=== PATIENT | male | born 1990 | race Two or more races ===

== ENCOUNTER 2018-09-12 14:39 | Emergency (ER) | payer SELFPAY ==
[~2018-09-12] VITALS: Ht 182.9 cm; Wt 126.6 kg
[2018-09-12 14:41] VITALS: BP 153/94
--- NOTE | 2018-09-12 15:31 | NUR ---
FIRST CONTACT WITH PT. PT C/O LOW BACK PAIN PT STATES "IT SHOCKS ME AND I CAN'T WALK." PT CRYING IN TRIAGE. PT DENIES ANY OTHER SYMPTOMS. PT'S AOX4. RESPS EVEN AND UNLABORED.
[2018-09-12] MEDS ORDERED: OXYcodone/APAP 5/325MG TABLET ONE (15:52)
[2018-09-12] MEDS ORDERED: ONDANSETRON ODT 4 MG ONE (15:52)
--- NOTE | 2018-09-12 15:56 | NUR ---
PT MEDICATED PER EMAR. PT TOLERATED WELL.
[2018-09-12] MEDS ORDERED: ONDANSETRON ODT 4 MG PO ONE (16:00)
[2018-09-12] MEDS ORDERED: OXYcodone/APAP 5/325MG TABLET PO ONE (16:00)
--- NOTE | 2018-09-12 16:39 | NUR ---
Patient/Caregiver given discharge instructions and they have confirmed that they understand the instructions. Patient ambulatory with steady gait. PT LEFT WITH ALL PERSONAL BELONGINGS.
== END 2018-09-12 16:41 | disposition home or self-care (01) ==
LOC: ED 16:35
DX: M54.5 Low back pain (principal)
CPT/HCPCS: 72110; 99283; Q0162